=== PATIENT | female | born 1995 | race Two or more races ===

== ENCOUNTER 2022-03-04 03:13 | Emergency (ER) | payer OTHER ==
[~2022-03-04] VITALS: Ht 175.3 cm; Wt 95.7 kg
[2022-03-04] MEDS ORDERED: VERAPAMIL ER100 MG (03:38)
[2022-03-04] MEDS ORDERED: KETO10TA2 PO (06:32)
== END 2022-03-04 06:40 ==
LOC: ER 03:13
DX: M54.89 Other dorsalgia (principal); Z88.1 Allergy status to other antibiotic agents